=== PATIENT | female | born 1925 | race Caucasian/White ===

== ENCOUNTER → 2016-02-18 | Outpatient (CLI) | payer BC ==
[2015-06-25 13:35] VITALS: BP 171/80; PULSE 55
[~2016-02-18] MED LIST: ACET-1256 PO; ALL100 PO; ALL300 PO; AMR2 PO; ASPEC325 PO; ASPI325T39 PO; CHOL400T5 PO; GEMF600T3 PO; GLIM4TAB2 PO; ISOS30TA51 PO; ISOS60TA25 PO; LSX20 PO; METO1TAB69 PO; NRN100; VITAMIN B12 PO
[2016-02-18 13:03] VITALS: BP 152/66; PULSE 51; TEMP 37; O2SAT 95
--- NOTE | 2016-02-18 14:34 | Radiation Oncology Follow-Up ---
Radiation Oncology Follow-Up Date of Visit Feb 18, 2016. 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 Treatment: Status post external beam radiation therapy completed 05/23/2015 received 5040 cGy, she was also given 3 HDR treatments at 400 cGy each. Last Edited By: Beth Head on Feb 18, 2016 14:34 (Beth Head PA-C) History of Present Illness Ms. Choi is an 89-year-old female who presented with abnormal uterine bleeding in 2014. She was initially evaluated by Dr. 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 She was then referred to Dr. Melendez who recommended a extrafascial hysterectomy and bilateral salpingo-oophorectomy. Based on her age and other comorbidities, he did not proceed with the bilateral pelvic lymph node dissection. She did undergo a total abdominal hysterectomy bilateral salpingo-oophorectomy on 07/31/2014 which did reveal endometrioid adenocarcinoma that was FIGO grade 3. Pathology did not reveal any involvement of the ovaries or fallopian tubes bilaterally. The tumor invaded less than 50% of the myometrium and involved 1.5/3.5 cm of the myometrium. There is no evidence of lymphovascular space invasion in the margins were negative. Dr. Melendez did discuss adjuvant radiation therapy however the patient was not interested in any further management and elected for observation. The patient was seen in follow-up by Dr. Eugenie Salgado in the beginning of February 2014 and she did appreciate an abnormality in the vaginal cuff. She did biopsy the abnormality which did confirm the presence of adenocarcinoma and this was completed on 02/21/2015. She did have a repeat staging scans were completed on 03/06/2015 which did show "1. A new 5 mm subpleural nodular density within the right upper lobe anteriorly. This could represent a small focus of inflammatory or infectious change. However, given the patient's history of malignancy a six- month chest CT follow is recommended to ensure stability/resolution. 2. Otherwise, no evidence for metastatic disease within the chest." Otherwise, in the abdomen there was no evidence of any recurrent disease. Dr. Melendez to see the patient in follow-up to discuss treatment options and recommended consideration of radiation therapy. We are now seeing the patient in consultation to discuss the role of radiation therapy. She received external beam radiation therapy from 04/10/2015 to 05/23/2015. She received 5040 cGy. She also received 3 HDR treatments. These were given May 07, May 14, and May 21. She received 400 cGy with each treatment. (Beth Head PA-C) Interim History She's been doing well over the past 6 months. She denies any vaginal discharge or irritation. She's had no change in bowel habits or urination. She saw Dr. Melendez 01/23/2016. Examination reveals no recurrence. She reported that she has discontinued the use of the vaginal dilator. She had no visible or palpable masses. She had some mild telangiectasis. She has been having some discomfort of her right lower back. She has known history of severe scoliosis and spinal stenosis. Tylenol relieves the pain. The pain is not constant. Pain is also relieved by using heat. She plans to discuss this further with her PCP should become more a problem. (Beth Head PA-C) Allergies Coded Allergies: Nifedipine (Unverified Allergy, Severe, ANAPHYLAXIS, 06/26/15) Amlodipine (Unverified Allergy, Intermediate, EDEMA, 06/26/15) Benazepril (Unverified Allergy, Intermediate, SWELLING, 06/26/15) Labetalol (Unverified Allergy, Intermediate, leg pain, 06/26/15) Niacin (Unverified Allergy, Mild, RASH, 06/26/15) Omeprazole (Unverified Allergy, Mild, RASH, 06/26/15) Clopidogrel (Unverified Allergy, Unknown, HIVES, 06/26/15) Diclofenac (Verified Allergy, Unknown, CATAFLAM, 06/27/15) Doxycycline (Unverified Allergy, Unknown, N/V, 06/26/15) Valsartan (Unverified Allergy, Unknown, NUMBESS, 06/26/15) Clonidine (Unverified Adverse Reaction, Intermediate, HTN, 06/26/15) Atorvastatin (Unverified Adverse Reaction, Unknown, NUMBNESS, 06/26/15) Doxazosin (Unverified Adverse Reaction, Unknown, MUSCLE PAIN, 06/26/15) Fluvastatin (Unverified Adverse Reaction, Unknown, FLUSHING, 06/26/15) Lovastatin (Unverified Adverse Reaction, Unknown, MORALES, 06/26/15) Magnesium Carbonate (Unverified Adverse Reaction, Unknown, UNKNOWN, ) Pravastatin (Unverified Adverse Reaction, Unknown, CP, 06/26/15) Quinapril (Unverified Adverse Reaction, Unknown, UNKNOWN, 06/26/15) Home Medications Scheduled Allopurinol (Zyloprim *), 300 MG PO DAILY Aspirin (Aspirin *), 325 MG PO QAM Furosemide (Lasix *), 20 MG PO QAM Gemfibrozil (Lopid), 600 MG PO HS Glimepiride (Amaryl *), 2 MG PO QAM Isosorbide Dinitrate (Isordil), 90 MG PO BID Metoprolol Succ (Toprol Xl) (Toprol-Xl ), 150 MG PO BID [Vitamin B12], Unknown Dose PO DAILY Review of Systems Gastrointestinal: Symptoms: WNL GI Comments: "Depends on what I eat" Oral: Symptoms: No Problems Other Oral Symptoms: patient just had bridgework and has slight soreness on top of lip Respiratory: Symptoms: WNL Urinary: Symptoms: WNL Skin: Symptoms: No Problems Other Skin Symptoms: Patient complains of generalized dry skin (Beth Head, [place]) Physical Exam Vital Signs Date Time Temp Pulse Resp B/P Pulse Ox O2 Delivery O2 Flow Rate FiO2 02/18/16 13:03 37.0 51 16 152/66 95 Pain: Pain Onset: aches with weather changes Side: Bilateral Patient Pain Scale: 0 - 10 Initial Pain Intensity: 2.5 Pain Description: Aching Additional Comments: arthritis pain Fatigue: None General Appearance: no apparent distress Eyes: normal inspection, EOMI ENT: normal ENT inspection, hearing grossly normal Neck: no adenopathy Respiratory/Chest: lungs clear, no respiratory distress, no accessory muscle use Cardiovascular: regular rate, rhythm, no gallop, no murmur Abdomen: non tender, soft Extremities: no pedal edema Neurologic/Psychiatric: no motor/sensory deficits, alert, normal mood/affect Skin: warm/dry Additional Exam Notes: Back shows severe scoliosis. There is currently no area of tenderness along the thoracic or lumbar spine. No tenderness of the lower lateral ribs. (Beth Head PA-C) Assessment & Plan Plan: Continue regular follow-up with Dr. Melendez and Dr. Eugenie Salgado. She has been appointment see Dr. Salgado in 6 months. She is going to see her primary care physician should the back discomfort become more problematic. We asked her to return to our office in 1 year. She'll call if she has any questions or concerns in the interim. (Beth Head PA-C) I agree with note created by Beth Head PA-C. I reviewed the patient's chart and information with her. I have examined and evaluated the patient. I reviewed relevant clinical information and answered the patient's and/or family' s questions. (Veeral. Dennison MD) Total Time In Follow-Up I spent 20 minutes speaking to the patient performing examination. I spent 15 minutes reviewing information in completing this note. (Beth Head PA-C) I spent 10 minutes examining and counseling the patient. (Veeral. Dennison MD) Copy To Fox Piedra M.D.; Home Melendez M.D.; Eugenie Salgado M.D.
== END | disposition home or self-care (01) ==
LOC: C.ONC 12:52
PROVIDERS: ATTEND Radiology Radiation Oncology
DX: Z08 Encounter for follow-up examination after completed treatment for malignant neoplasm (principal); Z92.3 Personal history of irradiation; Z85.42 Personal history of malignant neoplasm of other parts of uterus

== ENCOUNTER 2016-03-01 23:34 | Emergency (ER) | payer BC ==
[~2016-03-01] VITALS: Ht 160 cm; Wt 90.7 kg
[~2016-03-01 23:34] MED LIST changes: -ACET-1256 PO; -ALL300 PO; -ASPI325T39 PO; -CHOL400T5 PO; -GLIM4TAB2 PO; -ISOS60TA25 PO; -NRN100
[2016-03-01 23:46] VITALS: TEMP 36.7; Ht 160 cm; Wt 90.7 kg
--- NOTE | 2016-03-02 00:10 | EMERGENCY ROOM VISIT NOTE ---
History Report prepared by Jian: Sidra Echevarria Under the Supervision of: Dr. Romina Tucker M.D. First contact with patient: 23:50 Chief Complaint: REFERRED BY DOCTOR Stated Complaint: +D DIMER,RT CHEST PAIN,S/P BLOOD WORK CXR History of Present Illness The patient is an 89 year old female who presents to the Emergency Room with complaints of a worsening right sided chest pain starting 3 days [employer]. The patient states the pain is worse with movement or exertion and radiates into her right arm. The patient's daughter states that the patient was seen at a checkup 3 days ago for her severe spinal stenosis and discussed her right sided chest pain and the physician thought she might have pleurisy. She states the patient went to a walk in clinic earlier today for her right sided chest pain and had blood work done which after they returned home showed an elevated d- dimer. She states that at the clinic the patient had some leg tenderness which concerned the physician about possible blood clots refereeing them to come and be evaluated in the ED tonight. The patient states she has occasional cough along with occasional pain when taking a deep breath. She denies SOB with exertion or history of blood clots. Source of History: patient, family (daughter) Onset: 3 days [employer] Position: chest (right) Timing: worsening Modifying Factors (Worsening): exertion, movement Associated Symptoms: + cough (occasional), No SOB Note: Associated symptoms: occasional pain when taking a deep breath Review of Systems See HPI for pertinent positives & negatives. A total of 10 systems reviewed and were otherwise negative. Past Medical & Surgical Medical Problems: (1) CAD (coronary artery disease) (2) Diabetes (3) Endometrial adenocarcinoma (4) Hx of cancer of endometrium (5) Hx of radiation therapy (6) Presence of stent in LAD coronary artery (7) Spinal stenosis Family History Omitted due to patient age Social History Smoking Status: Never Smoker Alcohol Use: occasionally Marital Status: Housing Status: other Occupation Status: retired Current/Historical Medications Scheduled Allopurinol (Allopurinol), 450 MG PO DAILY Aspirin (Aspirin Ec), 325 MG PO QAM Furosemide (Furosemide), 20 MG PO DAILY Gemfibrozil (Lopid), 600 MG PO HS Glimepiride (Glimepiride), 2 MG PO QAM Isosorbide Mononitrate Ext Rel (Imdur Ext Rel), 90 MG PO BID Metoprolol Succ (Toprol Xl) (Toprol-Xl ), 150 MG PO BID Allergies Coded Allergies: Nifedipine (Unverified Allergy, Severe, ANAPHYLAXIS, 03/01/16) Amlodipine (Unverified Allergy, Intermediate, EDEMA, 03/01/16) Benazepril (Unverified Allergy, Intermediate, SWELLING, 03/01/16) Labetalol (Unverified Allergy, Intermediate, leg pain, 03/01/16) Niacin (Unverified Allergy, Mild, RASH, 03/01/16) Omeprazole (Unverified Allergy, Mild, RASH, 03/01/16) Clopidogrel (Unverified Allergy, Unknown, HIVES, 03/01/16) Diclofenac (Verified Allergy, Unknown, CATAFLAM, 03/01/16) Doxycycline (Unverified Allergy, Unknown, N/V, 03/01/16) Valsartan (Unverified Allergy, Unknown, NUMBESS, 03/01/16) Clonidine (Unverified Adverse Reaction, Intermediate, HTN, 03/01/16) Atorvastatin (Unverified Adverse Reaction, Unknown, NUMBNESS, 03/01/16) Doxazosin (Unverified Adverse Reaction, Unknown, MUSCLE PAIN, 03/01/16) Fluvastatin (Unverified Adverse Reaction, Unknown, FLUSHING, 03/01/16) Lovastatin (Unverified Adverse Reaction, Unknown, MORALES, 03/01/16) Magnesium Carbonate (Unverified Adverse Reaction, Unknown, UNKNOWN, ) Pravastatin (Unverified Adverse Reaction, Unknown, CP, 03/01/16) Quinapril (Unverified Adverse Reaction, Unknown, UNKNOWN, 03/01/16) Physical Exam Vital Signs Date Time Temp Pulse Resp B/P Pulse Ox O2 Delivery O2 Flow Rate FiO2 03/02/16 01:35 56 18 219/74 98 03/02/16 00:59 223/58 03/02/16 00:28 56 03/02/16 00:21 58 17 179/78 99 Room Air 03/01/16 23:46 36.7 60 20 214/78 98 Room Air Physical Exam Vital signs reviewed. General: Well-appearing female, in no significant distress. HEENT: No scleral icterus, PERRLA, neck supple. Atraumatic. Cardiovascular: Regular rate and rhythm, no extra sounds. Pulmonary: Clear to auscultation bilaterally, normal work of breathing. Abdomen: Soft, nontender, nondistended, positive bowel sounds. Musculoskeletal: Atraumatic, no peripheral edema. Neurologic: Patient awake alert and oriented x 3, full strength in all 4 extremities. Cranial nerves 2 through 12 grossly intact. Skin: Warm, dry, no rash Medical Decision & Procedures ER Provider Diagnostic Interpretation: CT results as stated below per my review and radiologist interpretation: Preliminary Findings Only ---See Final Report For Complete Findings: CTA CHEST: No evidence of pulmonary embolus. Marked calcific and noncalcific athermatous disease of the thoracic aorta. No aneurysm or dissection Mosaic attenuation of the lung parenchyma suggesting air trapping from small airways disease. No focal consolidation to suggest pneumonia. The heart is mildly enlarged. No pericardial effusion. Coronary artery calcifications. No pleural effusion or pneumothorax. The visualized upper abdomen is unremarkable. No acute osseous abnormality. Radiologist: Jacques Kasper M.D. Study ready at 0047 and initial results transmitted at 0054 Laboratory Results 03/02/16 00:05 Red Blood Count 3.29, Mean Corpuscular Volume 94.5, Mean Corpuscular Hemoglobin 31.3, Mean Corpuscular Hemoglobin Concent 33.1, Mean Platelet Volume 10.1, Neutrophils (%) (Auto) 71.3, Lymphocytes (%) (Auto) 10.5, Monocytes (%) (Auto) 10.2, Eosinophils (%) (Auto) 6.3, Basophils (%) (Auto) 1.2, Neutrophils # (Auto ) 4.28, Lymphocytes # (Auto) 0.63, Monocytes # (Auto) 0.61, Eosinophils # (Auto ) 0.38, Basophils # (Auto) 0.07 03/02/16 00:05 Test 03/02/16 00:05 03/02/16 00:11 03/02/16 00:18 White Blood Count 6.00 K/uL (4.8-10.8) Red Blood Count 3.29 M/uL (4.2-5.4) Hemoglobin 10.3 g/dL (12.0-16.0) Hematocrit 31.1 % (37-47) Mean Corpuscular Volume 94.5 fL (80-100) Mean Corpuscular Hemoglobin 31.3 pg (25-34) Mean Corpuscular Hemoglobin Concent 33.1 g/dl (32-36) Platelet Count 253 K/uL (130-400) Mean Platelet Volume 10.1 fL (7.4-10.4) Neutrophils (%) (Auto) 71.3 % Lymphocytes (%) (Auto) 10.5 % Monocytes (%) (Auto) 10.2 % Eosinophils (%) (Auto) 6.3 % Basophils (%) (Auto) 1.2 % Neutrophils # (Auto) 4.28 K/uL (1.4-6.5) Lymphocytes # (Auto) 0.63 K/uL (1.2-3.4) Monocytes # (Auto) 0.61 K/uL (0.11-0.59) Eosinophils # (Auto) 0.38 K/uL (0-0.5) Basophils # (Auto) 0.07 K/uL (0-0.2) RDW Standard Deviation 47.8 fL (36.4-46.3) RDW Coefficient of Variation 13.9 % (11.5-14.5) Immature Granulocyte % (Auto) 0.5 % Immature Granulocyte # (Auto) 0.03 K/uL (0.00-0.02) Est Creatinine Clear Calc Drug Dose 31.4 ml/min Estimated GFR () 42.1 Estimated GFR (Non- 36.3 BUN/Creatinine Ratio 15.8 (10-20) Calcium Level 8.9 mg/dl (8.5-10.1) Total Bilirubin 0.2 mg/dl (0.2-1) Direct Bilirubin < 0.1 mg/dl (0-0.2) Aspartate Amino Transf (AST/SGOT) 10 U/L (15-37) Alanine Aminotransferase (ALT/SGPT) 15 U/L (12-78) Alkaline Phosphatase 33 U/L (45-117) Total Protein 7.3 gm/dl (6.4-8.2) Albumin 3.6 gm/dl (3.4-5.0) Bedside Hemoglobin 10.2 g/dl (12.0-16.0) Bedside Hematocrit 30 % (37-47) Bedside Sodium 138 mEq/L (135-144) Bedside Potassium 3.9 mEq/L (3.3-5.0) Bedside Chloride 97 mEq/L (101-112) Bedside Total CO2 27 mEq/l (24-31) Anion Gap 19.0 mmol/L (16-25) Bedside Blood Urea Nitrogen 20 mg/dl (7-18) Bedside Creatinine 1.1 mg/dl (0.6-1.3) Bedside Glucose (other) 238 mg/dl (70-99) Bedside Ionized Calcium (Sarah) 1.13 mmol/l (1.12-1.32) Bedside Troponin I 0.000 ng/ml (0-0.045) Laboratory results per my review. Medications Administered Medications (Trade) Dose Ordered Sig/Kristina Route Start Time Stop Time Status Last Admin Dose Admin Sodium Chloride (Nss 1000ml) 1,000 ml @ 125 mls/hr Q8H STAT IV 03/02/16 00:11 03/02/16 01:57 DC 03/02/16 00:44 125 MLS/HR Diphenhydramine HCl (Benadryl Inj) 25 mg NOW STAT IV 03/02/16 00:11 03/02/16 00:13 DC 03/02/16 00:22 25 MG ECG Indication: chest pain Rate (beats per minute): 55 Rhythm: sinus bradycardia Findings: no acute ischemic change, no ectopy ED Course 2350: Past medical records reviewed. The patient was evaluated in room B6. A complete history and physical examination was performed. 0011: Benadryl Inj 25 mg IV, Sodium Chloride 1,000 ml @ 125 mls/hr IV 0120: Upon reevaluation, the patient appeared to have improvement of her symptoms. I discussed findings with her. She verbalized agreement of the treatment plan. The patient was discharged home. Medical Decision Chest pain: Acute coronary syndrome, pulmonary embolus, aortic dissection, musculoskeletal pain, pneumonia, pleural effusion, pneumothorax This patient was evaluated and appeared to be in no significant distress. IV access was obtained and laboratory work was drawn. The patient was placed on the bus monitor. EKG was obtained and reveals no evidence of acute ischemia. Laboratory work reveals a creatinine of 1.3. Given the elevated d- dimer earlier today, CT scan of the chest was performed. Patient did receive IV hydration and Benadryl prior to the study. She had a report of seafood allergy but has done well with IV contrast previously. CT scan of the chest was negative for pulmonary emboli. Patient was informed of the findings. She will continue her medications as prescribed and follow-up with her physician for reevaluation if symptoms persist. Patient will return to the ER for worsening of symptoms or any medical concerns. Impression Primary Impression: Right-sided chest pain Scribe Attestation The scribe's documentation has been prepared under my direction and personally reviewed by me in its entirety. I confirm that the note above accurately reflects all work, treatment, procedures, and medical decision making performed by me. Departure Information Dispostion Home / Self-Care Referrals Fox Piedra M.D. (PCP) Forms HOME CARE DOCUMENTATION FORM, IMPORTANT VISIT INFORMATION, WORK / SCHOOL INSTRUCTIONS Patient Instructions My [facility] Additional Instructions Diagnosis: Right-sided chest pain Please follow-up with your primary care physician this week for continued symptoms. Drink plenty of clear fluids after the CAT scan today. Return to the emergency department for worsening of symptoms or any medical concerns.
[2016-03-02] MEDS ORDERED: SODIUM CHLORIDE 0.9% 1000ML 1,000 ML IV STA (00:11)
[2016-03-02] MEDS ORDERED: DiphenhydrAMINE HCL 50 MG/ML VIAL IV STA (00:11)
[2016-03-02] MEDS ORDERED: LSX20 PO (00:16)
[2016-03-02] MEDS ORDERED: NRN100 (00:17)
[2016-03-02] MEDS ORDERED: GLIM4TAB2 PO (00:17)
[2016-03-02] MEDS ORDERED: ISOS60TA25 PO (00:17)
[2016-03-02] MEDS ORDERED: ALL300 PO (00:18)
[2016-03-02 00:20] LABS: BASO % 1.2 %; BASO ABS # 0.07 K/uL (0-0.2); COMPLETE YES; EOS % 6.3 %; HEMATOCRIT 31.1 % (37-47); IG% 0.5 %; LYMPH % 10.5 %; LYMPH ABS # 0.63 K/uL (1.2-3.4); MEAN CELL VOLUME 94.5 fL (80-100); MEAN CORPUSCULAR HEMOGLOBIN 31.3 pg (25-34); MEAN CORPUSCULAR HGB CONC 33.1 g/dl (32-36); MEAN PLATELET VOLUME 10.1 fL (7.4-10.4); MONO % 10.2 %; NEUT % 71.3 %; PLATELET COUNT 253 K/uL (130-400); RED BLOOD COUNT 3.29 M/uL (4.2-5.4)
[2016-03-02 00:27] LABS: ISTAT CREATININE 1.1 mg/dl (0.6-1.3); ISTAT HEMOGLOBIN 10.2 g/dl (12.0-16.0); ISTAT IONIZED CALCIUM 1.13 mmol/l (1.12-1.32)
[2016-03-02] MEDS ORDERED: OPTIRAY 320 IV PRN (00:30)
[2016-03-02] MEDS ORDERED: ASPI325T39 PO (00:32)
[2016-03-02 00:41] LABS: ALT/SGPT 15 U/L (12-78); AST/SGOT 10 U/L (15-37); BLOOD UREA NITROGEN 21 mg/dl (7-18); BUN/CREATININE RATIO 15.8 (10-20); CALCIUM 8.9 mg/dl (8.5-10.1); CARBON DIOXIDE 29 mmol/L (21-32); CHLORIDE 101 mmol/L (98-107); GLUCOSE 251 mg/dl (70-99); POTASSIUM 3.9 mmol/L (3.5-5.1); SODIUM 139 mmol/L (136-145)
[2016-03-02 00:44] LABS: ALKALINE PHOSPHATASE 33 U/L (45-117)
[2016-03-02 01:35] VITALS: BP 219/74; PULSE 56; O2SAT 98
--- NOTE | 2016-03-02 06:56 | DIAGNOSTIC IMAGING REPORT ---
ADDENDUM Addendum: An 8 mm right middle lobe nodule shown on image 145 of [address] of August 15, 2015. This nodule is indeterminate and a follow-up chest CT in 6 months is recommended. Electronically signed by: Socrates Reyna M.D. 03/22/2016 7:38 AM Dictated Date/Time: 03/22/2016 7:[address] ANGIOGRAPHY OF THE CHEST, PULMONARY EMBOLUS PROTOCOL CLINICAL HISTORY: Chest pain. Elevated d-dimer. COMPARISON STUDY: Chest CT August 15, 2015. TECHNIQUE: Following IV administration of 92 mL of Optiray-320, helical axial images of the chest were obtained utilizing the pulmonary embolus protocol. Maximal intensity projections and sagittal and coronal reformats were viewed on an independent 3D workstation. IV contrast was administered without complication. CT DOSE: 439.71 mGy.cm FINDINGS: No pulmonary emboli are identified. The heart is moderately enlarged. There is no pericardial effusion. No enlarged thoracic lymph nodes are present. There is no evidence of thoracic aortic dissection. There is extensive atherosclerotic calcification of the descending thoracic aorta. There is a small hiatal hernia. No consolidation is present. There is mild mosaic attenuation within lungs with groundglass opacities. Note is made of a new 8 mm right middle lobe nodule shown on image 145 of 306. A few tiny left upper lobe nodules are unchanged. No pneumothorax or pleural effusion is present. The bony thorax and upper abdomen are unremarkable. There is a right hepatic lobe cyst. IMPRESSION: 1. No pulmonary emboli identified. 2. Moderate cardiomegaly. 3. Mild mosaic attenuation groundglass opacities which could reflect air trapping or mild pulmonary edema. 4. New 8 mm right middle lobe nodule. This nodule is indeterminate and a follow-up chest CT in 6 months is recommended. Electronically signed by: Socrates Reyna M.D. 03/02/2016 6:54 AM Dictated Date/Time: 03/02/2016 6:43 AM
[2016-03-19] MEDS ORDERED: ACET-1256 PO (08:31)
[2016-11-15] MEDS ORDERED: CHOL400T5 PO (15:08)
== END 2016-03-02 01:35 | disposition home or self-care (01) ==
LOC: C.EDB 23:35
DX: R07.9 Chest pain, unspecified (principal); R00.0 Tachycardia, unspecified; I25.10 Atherosclerotic heart disease of native coronary artery without angina pectoris; E11.9 Type 2 diabetes mellitus without complications; Z98.61 Coronary angioplasty status; Z85.42 Personal history of malignant neoplasm of other parts of uterus; Z79.899 Other long term (current) drug therapy; Z88.8 Allergy status to other drugs, medicaments and biological substances

== ENCOUNTER → 2016-03-23 | Outpatient (CLI) | payer BC ==
[~2016-03-23] MED LIST changes: +ACET-1256 PO; -ALL100 PO; +ALL300 PO; -AMR2 PO; -ASPEC325 PO; +ASPI325T39 PO; +CHOL400T5 PO; +GLIM4TAB2 PO; -ISOS30TA51 PO; +ISOS60TA25 PO; -VITAMIN B12 PO
--- NOTE | 2016-03-23 16:04 | MAMMOGRAPHY REPORT ---
BILATERAL DIGITAL SCREENING MAMMOGRAM WITH CAD: 03/23/2016 CLINICAL HISTORY: Routine screening. Patient has no complaints. TECHNIQUE: Bilateral CC and MLO views were obtained. Current study was also evaluated with a Compu ter Aided Detection (CAD) system. COMPARISON: Comparison is made to exams dated: 10/01/2010 mammogram and 08/05/2009 mammogram - [facility]. BREAST COMPOSITION: The tissue of both breasts is heterogeneously dense, which may obscure small ma sses. FINDINGS: There are diffuse bilateral rodlike secretory calcifications throughout the breasts. No s uspicious mass, architectural distortion or cluster of new, suspicious microcalcifications is seen. IMPRESSION: ACR BI-RADS CATEGORY 1: NEGATIVE There is no mammographic evidence of malignancy. A 1 year screening mammogram is recommended. The p atient will receive written notification of the results. Approximately 10% of breast cancers are not detected with mammography. A negative mammographic repor t should not delay biopsy if a clinically suggestive mass is present. Cris Mahoney M.D. ay/:03/23/2016 15:40:35 [employer]: Venice Azul RT(R)(M), [facility] letter sent: Normal 1/2 BI-RADS Code: ACR BI-RADS Category 1: Negative
== END | disposition home or self-care (01) ==
LOC: C.MAMM 13:58
PROVIDERS: ATTEND Family Medicine
DX: Z12.31 Encounter for screening mammogram for malignant neoplasm of breast (principal)